=== PATIENT | male | born 1960 | race Caucasian/White ===

== ENCOUNTER 2018-07-01 17:10 | Emergency (ER) | payer SELFPAY | END 2018-07-01 17:37 | disposition home or self-care (01) | LOC: ERS 17:10 | DX: H60.93 Unspecified otitis externa, bilateral (principal); Z71.6 Tobacco abuse counseling; F17.210 Nicotine dependence, cigarettes, uncomplicated | CPT/HCPCS: 99282 ==

== ENCOUNTER 2018-07-02 16:20 | Emergency (ER) | payer SELFPAY | END 2018-07-02 18:50 | disposition home or self-care (01) | LOC: ERS 16:20 | DX: H61.21 Impacted cerumen, right ear (principal); H60.91 Unspecified otitis externa, right ear; F17.210 Nicotine dependence, cigarettes, uncomplicated; Z71.6 Tobacco abuse counseling | CPT/HCPCS: 69209; 99406 ==